=== PATIENT | male | born 1995 | race Asian ===

== ENCOUNTER 2018-06-24 14:48 | Inpatient (IN) | payer OTHER ==
[~2018-06-24] VITALS: Ht 170.2 cm; Wt 61.2 kg
[2018-06-24 15:06] VITALS: BP_SYST 123
[2018-06-24] MEDS ORDERED: NACL 0.9% 1,000 ML IV ONE (15:17)
[2018-06-24] MEDS ORDERED: ONDANSETRON HCL 4 MG/2 ML VIAL IVP ONE (15:30)
[2018-06-24] MEDS ORDERED: NS 500 ML IV ONE (15:30)
[2018-06-24] MEDS ORDERED: MAG HYDROX/AL HYDROX/SIMETH 30 ML, BELLADONNA ALKALOIDS/PHENOBARB 10 ML, LIDOCAINE VISC... PO ONE ×3 (15:30)
[2018-06-24 15:36] LABS: BILIRUBIN,URINE NEGATIVE (NEGATIVE); BLOOD, URINE NEGATIVE (NEGATIVE); CLARITY/URINE CLEAR (CLEAR); COLOR,URINE YELLOW (YELLOW); GLUCOSE,URINE NEGATIVE (NEGATIVE); KETONES,URINE TRACE (NEGATIVE); LEUKOCYTE ESTERASE ,URINE NEGATIVE (NEGATIVE); NITRITE, URINE NEGATIVE (NEGATIVE); PROTEIN URINE NEGATIVE (NEGATIVE); UROBILINOGEN,URINE 0.2 (0.2-1.0)
[2018-06-24 15:59] LABS: BASOPHILS # (AUTO) 0.1 K/uL (0.0-0.2); BASOPHILS % (AUTO) 0.6 % (0.0-2.0); EOSINOPHILS # (AUTO) 0.1 K/uL (0.0-0.4); EOSINOPHILS % (AUTO) 0.5 % (0.0-4.0); HEMATOCRIT 48.9 % (36-54); HEMOGLOBIN 16.9 g/dL (14.0-18.0); LYMPHOCYTES % (AUTO) 13.4 % (20.5-51.5); MEAN CORPUSCULAR HEMOGLOBIN 33 pg (27-31); MEAN CORPUSCULAR HGB CONC 35 % (32-36); MEAN CORPUSCULAR VOLUME 95 fL (79.0-98.0); MONOCYTES % (AUTO) 6.4 % (1.7-9.3); NEUTROPHILS # (AUTO) 11.9 K/uL (1.8-7.7); NEUTROPHILS % (AUTO) 79.1 % (40.0-70.0); PLATELET COUNT (AUTO) 255 K/uL (130-430); RED BLOOD CELL COUNT(AUTO) 5.16 MIL/uL (4.2-6.2); RED CELL DISTRIBUTION WIDTH 11.2 % (9.0-15.0); WHITE BLOOD COUNT (AUTO) 15.1 K/uL (4.8-10.8)
[2018-06-24] MEDS ORDERED: MORPHINE 4 MG/ML INJ. SYRINGE IVP ONE (16:00)
[2018-06-24 16:03] LABS: CALCIUM 9.4 mg/dL (8.4-11.0); CREATININE 1.02 mg/dL (0.55-1.30); POTASSIUM 3.4 mmol/L (3.5-5.1)
[2018-06-24 16:06] LABS: INR 1.1 (0.80-1.20); PROTHROMBIN TIME 10.8 SECS (9.5-12.5)
[2018-06-24 16:07] LABS: ALBUMIN 4.6 g/dL (3.4-4.8); TOTAL BILIRUBIN 0.7 mg/dL (0.0-1.0)
[2018-06-24] MEDS ORDERED: cefTRIAXone 1 GM IVPB PREMIX 50 ML IV ONE (16:30)
[2018-06-24] MEDS ORDERED: MORPHINE 2 MG/ML INJ. SYRINGE IVP PRN (18:00)
[2018-06-24] MEDS ORDERED: ONDANSETRON HCL 4 MG/2 ML VIAL IVP PRN (18:00)
[2018-06-24] MEDS ORDERED: ACETAMINOPHEN 325 MG TABLET PO PRN (18:00)
[2018-06-24] MEDS ORDERED: LORazepam 2 MG/ML VIAL IVP PRN (18:15)
[2018-06-24] MEDS ORDERED: HYDROcodone/ACETAMIN 10-325 MG TAB PO PRN (18:15)
[2018-06-24] MEDS ORDERED: BISACODYL 10 MG/SUPPOSITORY RC PRN (18:15)
[2018-06-24] MEDS ORDERED: SIMETHICONE 80 MG TAB.CHEW PO PRN (18:15)
[2018-06-24] MEDS ORDERED: POTASSIUM CHLORIDE 20 MEQ TAB.PRT.SR PO PRN (18:15)
[2018-06-24] MEDS ORDERED: ZOLPIDEM TARTRATE 5 MG TABLET PO PRN (18:15)
[2018-06-24 18:38] VITALS: BP_SYST 110
[2018-06-24 19:00] VITALS: BP_SYST 117
[2018-06-24 19:09] LABS: FREE T4 (FREE THYROXINE) 0.9 ng/dL (0.6-1.6); THYROID STIMULATING HORMONE 0.39 uIu/mL (0.34-4.82)
[2018-06-24 20:00] VITALS: BP_SYST 117
[2018-06-24] MEDS: DOCUSATE SODIUM 100 MG CAPSULE PO SCH (21:00)
[2018-06-24] MEDS: metroNIDAZOLE 500 MG TABLET PO SCH (21:10)
[2018-06-24] MEDS: LACTOBACILLUS RHAMNOSUS GG 1 CAP CAPSULE PO SCH (21:10)
[2018-06-24] MEDS: NACL 0.9% 1,000 ML IV SCH (23:26)
[2018-06-25] VITALS: BP_SYST 112
[2018-06-25] MEDS: NACL 0.9% 1,000 ML IV SCH ×2 (02:19→06:10)
[2018-06-25 07:08] LABS: BASOPHILS % (AUTO) 0.3 % (0.0-2.0); EOSINOPHILS # (AUTO) 0.1 K/uL (0.0-0.4); EOSINOPHILS % (AUTO) 0.8 % (0.0-4.0); HEMATOCRIT 42.6 % (36-54); HEMOGLOBIN 14.6 g/dL (14.0-18.0); LYMPHOCYTES # (AUTO) 1.7 K/uL (1.0-5.5); LYMPHOCYTES % (AUTO) 17.3 % (20.5-51.5); MEAN CORPUSCULAR HEMOGLOBIN 33 pg (27-31); MEAN CORPUSCULAR HGB CONC 34 % (32-36); MEAN CORPUSCULAR VOLUME 95 fL (79.0-98.0); MONOCYTES # (AUTO) 0.8 K/uL (0.0-1.0); MONOCYTES % (AUTO) 7.9 % (1.7-9.3); NEUTROPHILS # (AUTO) 7.3 K/uL (1.8-7.7); NEUTROPHILS % (AUTO) 73.7 % (40.0-70.0); PLATELET COUNT (AUTO) 208 K/uL (130-430); RED CELL DISTRIBUTION WIDTH 11.3 % (9.0-15.0); WHITE BLOOD COUNT (AUTO) 9.9 K/uL (4.8-10.8)
[2018-06-25 07:20] LABS: CALCIUM 8.7 mg/dL (8.4-11.0); CREATININE 0.99 mg/dL (0.55-1.30); PHOSPHORUS 3.5 mg/dL (2.7-4.5); POTASSIUM 3.4 mmol/L (3.5-5.1)
[2018-06-25 07:42] VITALS: BP_SYST 111
[2018-06-25] MEDS: metroNIDAZOLE 500 MG TABLET PO SCH (08:23)
[2018-06-25] MEDS: LACTOBACILLUS RHAMNOSUS GG 1 CAP CAPSULE PO SCH (08:23)
[2018-06-25] MEDS: DOCUSATE SODIUM 100 MG CAPSULE PO SCH (08:23)
[2018-06-25] MEDS ORDERED: HYDR-2489 PO (11:07)
[2018-06-25] MEDS ORDERED: DOCU-144 PO (11:07)
[2018-06-25] MEDS ORDERED: ONDA4TAB5 PO (11:07)
[2018-06-25 11:23] VITALS: BP_SYST 111
[2018-06-26 04:13] LABS: HEMOGLOBIN A1C 5.1 % (4.8-5.6)
[2018-06-26 08:10] LABS: T4 (THYROXINE) 6.6 ug/dL (4.5-12.0)
== END 2018-06-25 12:10 | disposition home or self-care (01) | DRG 392 ==
LOC: SED 14:48 → SMU 17:59
PROVIDERS: ADMIT Family Medicine; ATTEND Family Medicine
DX: K52.9 Noninfective gastroenteritis and colitis, unspecified (principal); E87.6 Hypokalemia; D72.829 Elevated white blood cell count, unspecified; K59.00 Constipation, unspecified; E86.0 Dehydration; E83.41 Hypermagnesemia
CPT/HCPCS: 36415; 80048; 80053; 80061; 81003; 82150-TC; 83036; 83605; 83690-TC; 83735-TC; 83880; 84100-TC; 84436; 84439; 84443-TC; 84479; 85025; 85610-TC; 85730-TC; 87040-TC; 96361; 96365; 96375; 99285; J0696; J1956; J2001; J2270; J2405; J7030